=== PATIENT | male | born 1990 | race Caucasian/White ===

== ENCOUNTER 2016-09-17 17:30 | Day surgery (SDC) | payer OTHER, BC ==
[2016-09-17] MEDS ORDERED: ceFAZolin 2 GM in Premix Bag 1 BAG IV ONE (17:37)
[2016-09-17] MEDS ORDERED: HYDROmorphone 1 MG/ML Syringe IVPUSH ONE (17:46)
[2016-09-17] MEDS ORDERED: Diphtheria,Pertussis(Acell),Tetanus Vaccine 0.5 ML SDV ONE (18:27)
[2016-09-17] MEDS ORDERED: Rocuronium 50 MG/5 ML Vial ONE (18:28)
[2016-09-17] MEDS ORDERED: fentaNYL 250 MCG/5 ML SDV ONE (18:28)
[2016-09-17] MEDS ORDERED: Neostigmine Methylsulfate 1 MG/ML 5 ML Syringe ONE (18:28)
[2016-09-17] MEDS ORDERED: Dexamethasone 4 MG/ML SDV ONE (18:28)
[2016-09-17] MEDS ORDERED: Ondansetron 4 MG/2 ML SDV ONE (18:28)
[2016-09-17] MEDS ORDERED: Midazolam 1 MG/ML 2 ML SDV ONE (18:28)
[2016-09-17] MEDS ORDERED: Propofol 200 MG/20 ML SDV ONE (18:28)
[2016-09-17] MEDS ORDERED: Succinylcholine/Normal Saline 200 MG/10 ML Syringe ONE (18:28)
[2016-09-17] MEDS ORDERED: Povidone-Iodine 10% Soln 118.25 ML Bottle ONE (18:41)
[2016-09-17] MEDS ORDERED: Bupivacaine 0.5%/EPINEPHrine 1:200,000 50 ML MDV ONE (18:41)
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
--- NOTE | 2016-09-17 19:10 | PCM.HP ---
H&P History of Present Illness - General Date of Service: 09/17/16 Source of Information: Patient History Limitations: Reports: No limitations - History of Present Illness Onset of Symptoms: Reports: today, sudden Duration of Symptoms: Reports: Hour(s): Location: Reports: upper extremity, right Quality: Reports: Burning, Pressure, Stabbing, Throbbing Improves with: Reports: Immobilization Worsens with: Reports: Movement Associated Symptoms: Reports: denies other symptoms - Related Data Allergies/Adverse Reactions: Allergies Allergy/AdvReac Type Severity Reaction Status Date / Time No Known Allergies Allergy Verified 09/17/16 17:39 Home Medications: Home Meds NK [No Known Home Meds] 09/17/16 [History] Past Medical History HEENT History: Reports: Otitis media Musculoskeletal History: Reports: Fracture Other Musculoskeletal History: hand Social & Family History - Tobacco Use Smoking Status *Q: Never Smoker - Caffeine Use Caffeine Use: Reports: Coffee - Recreational Drug Use Recreational Drug Use: No H&P Review of Systems - Review of Systems: Review Of Systems: See Below General: Reports: no symptoms HEENT: Reports: no symptoms Pulmonary: Reports: No Symptoms Cardiovascular: Reports: no symptoms Gastrointestinal: Reports: No symptoms Genitourinary: Reports: no symptoms Musculoskeletal: Reports: arm pain Skin: Reports: no symptoms Psychiatric: Reports: no symptoms Neurological: Reports: No Symptoms Hematologic/Lymphatic: Reports: no symptoms Immunologic: Reports: no symptoms Exam - Exam Exam: See Below - Vital Signs Vital Signs: Last Vital Signs Temp 97.6 F 09/17/16 19:01 Pulse 66 09/17/16 19:01 Resp 18 09/17/16 19:01 BP 120/36 L 09/17/16 19:01 Pulse Ox 98 09/17/16 19:01 Weight: 190 lb - Exam General: alert, oriented HEENT: PERRLA, Conjunctiva clear, EACs clear Neck: supple, trachea midline Lungs: Clear to auscultation, Normal respiratory effort Cardiovascular: regular rate, regular rhythm Abdomen: normal bowel sounds Extremities: normal pulses Peripheral Pulses: 2+: radial (L) Skin: warm, dry, wound Neurological: cranial nerves intact Neuro Extensive - Mental Status: alert, oriented x3, normal mood/affect, normal cognition, memory intact (AIN intact. difficult to move fingers secondary to pain) - Patient Data Lab Results last 24 hrs: Laboratory Results - last 24 hr 09/17/16 09/17/16 Range/Units 18:10 18:10 WBC 14.8 H (4.5-11.0) K/uL RBC 4.98 (4.30-5.90) M/uL Hgb 15.3 H (12.0-15.0) g/dL Hct 41.8 (40.0-54.0) % MCV 84 (80-98) fL MCH 31 (27-31) pg MCHC 37 H (32-36) % Plt Count 199 (150-400) K/uL Neut % (Auto) 80 H (36-66) % Lymph % (Auto) 10 L (24-44) % [place] % (Auto) 9 H (2-6) % Eos % (Auto) 1 L (2-4) % Baso % (Auto) 0 (0-1) % Sodium 147 (140-148) mmol/L Potassium 3.1 L (3.6-5.2) mmol/L Chloride 108 (100-108) mmol/L Carbon Dioxide 26 (21-32) mmol/L Anion Gap 16.1 H (5.0-14.0) mmol/L BUN 18 (7-18) mg/dL Creatinine 1.0 (0.8-1.3) mg/dL Est Cr Clr Drug Dosing 123.94 mL/min Estimated GFR (MDRD) > 60 (>60) Glucose 107 H (74-106) mg/dL Calcium 8.5 (8.5-10.1) mg/dL Result Diagrams: 09/17/16 18:10 09/17/16 18:10 *Q Meaningful Use (ADM) - VTE *Q VTE Criteria *Q: - VTE Risk Assess *Q Each Risk Factor Represents 1 Point: None Total Score 1 Point Risk Factors: 0 - Stroke *Q Stroke Criteria *Q: - AMI *Q AMI Criteria *Q: - Problem List (1) Open fracture of radius and ulna, shaft SNOMED Code(s): 85484313 ICD Code: S52.309B - UNSP FX SHAFT OF UNSP RADIUS, INIT FOR OPN FX TYPE I/2; S52.209B - UNSP FX SHAFT OF UNSP ULNA, INIT FOR OPN FX TYPE I/2 Status: Acute Current Visit: Yes Problem List Initiated/Reviewed/Updated: Yes Orders Last 24hrs: Active Orders 24 hr Category Date Time Status Vaccines to be Administered [RC] PER UNIT ROUTINE Care 09/17/16 18:16 Active Fluoro Up To 1Hr [CR] Routine Exams 09/17/16 18:44 Ordered Forearm 2V Rt [CR] Stat Exams 09/17/16 17:36 Taken Assessment/Plan Comment:: will plan for emergent ORIF BBFF right arm. Risks and benefits explained to patient and parents. Informed consent obtained. Will keep overnight on antibiotics. Antibiotics and tetanus given in ER. 2 g ancef.
[2016-09-17] MEDS ORDERED: traMADol 50 MG Tab PO PRN (21:03)
[2016-09-17] MEDS ORDERED: hydrOXYzine HCl 25 MG Tab PO PRN (21:08)
[2016-09-17] MEDS ORDERED: ceFAZolin 2 GM in Sodium Chloride 0.9% 50 ML IV SCH (21:15)
[2016-09-17] MEDS ORDERED: Lactated Ringers 1,000 ML ONE (21:19)
[2016-09-17] MEDS: Acetaminophen/oxyCODONE 325-5 MG Tab PO PRN (22:49)
[2016-09-17] MEDS: ceFAZolin 2 GM in Premix Bag 1 BAG IV SCH (22:50)
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
[2016-09-18 03:03] VITALS: BP 128/78
[2016-09-18] MEDS: Acetaminophen/oxyCODONE 325-5 MG Tab PO PRN ×2 (03:08→08:47)
[2016-09-18] MEDS: ceFAZolin 2 GM in Premix Bag 1 BAG IV SCH (05:16)
[2016-09-18] MEDS ORDERED: ceFAZolin 2 GM in Sodium Chloride 0.9% 50 ML IV SCH (14:00)
--- NOTE | 2016-09-20 09:54 | CR ---
Right forearm.. Findings: Fractures through the mid to distal shafts of the ulna and radius with displacement distal to the fracture by one shaft thickness. Foreshortening by a centimeter. Anterior angulation.
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
== END 2016-09-18 10:34 | disposition home or self-care (01) ==
LOC: JP.ED 17:30 → JP.SDS 18:27 → JP.2SS 22:10 → UNDOADMOB 22:10 → JP.2SS 22:10 → JP.SDS 09-18 10:34 → UNDODISOB 09-18 10:34
PROVIDERS: ATTEND Orthopaedic Surgery
PROC: 0PSH04Z Reposition Right Radius with Internal Fixation Device, Open Approach (ICD-10-PCS; principal; 2016-09-17)
PROC: 0PSK04Z Reposition Right Ulna with Internal Fixation Device, Open Approach (ICD-10-PCS; 2016-09-17)
DX: S52.301B Unspecified fracture of shaft of right radius, initial encounter for open fracture type I or II (principal); S52.291B Other fracture of shaft of right ulna, initial encounter for open fracture type I or II; V29.3XXA Motorcycle rider (driver) (passenger) injured in unspecified nontraffic accident, initial encounter; Z23 Encounter for immunization
CPT/HCPCS: 25575; 36415; 73090; 76001; 80048; 85025; 90715; 96365; 96375; 99285; A9270; C1713; C1776; J0690; J1100; J1170; J2250; J2405; J2704; J3010; J7120